=== PATIENT | male | born 1965 | race African-American/Black ===

== ENCOUNTER → 2021-02-18 | Outpatient (REF) ==
--- NOTE | 2021-02-18 15:54 | REP ---
INDICATION: LYNN ORDER- BACK PAIN. COMPARISON: None. TECHNIQUE: Four views including lateral, AP and open-mouth odontoid views. The patient was unable to position himself for the swimmer's view. Recent shoulder surgery. FINDINGS: Lateral views demonstrate normal alignment from C2 through the C7-T1. Disc spaces are maintained. Vertebral body heights are preserved. Alignment is normal. Prevertebral soft tissues are not swollen. AP view demonstrates bilateral atherosclerotic vascular calcification in the distribution of the carotid arteries, right more extensively than left. There is mild osteoarthritic facet hypertrophy on the left at C4-5. Open mouth odontoid view is unremarkable. IMPRESSION: Mild degenerative spondylosis changes. Vascular calcification in the carotid arteries, right greater than left. <Electronically signed by Serge Jacobson > 02/18/21 [id number]
== END ==
LOC: M RAD 15:02
PROVIDERS: ATTEND Internal Medicine
DX: M54.9 Dorsalgia, unspecified (principal)